=== PATIENT | female | born 1990 | race Caucasian/White ===

== ENCOUNTER 2023-07-20 10:37 | Emergency (ER) | payer MEDICAID, OTHER ==
[~2023-07-20] VITALS: Ht 165.1 cm; Wt 116.6 kg
[2023-07-20 10:52] VITALS: BP 119/72; PULSE 74; RESP 18; TEMP 98.4; O2SAT 97
[2023-07-20] MEDS ORDERED: IBUP-2213 PO (12:18)
== END 2023-07-20 12:47 | disposition home or self-care (01) ==
LOC: MED 10:37
DX: S93.401A Sprain of unspecified ligament of right ankle, initial encounter (principal); R03.0 Elevated blood-pressure reading, without diagnosis of hypertension; Z79.1 Long term (current) use of non-steroidal anti-inflammatories (NSAID); X58.XXXA Exposure to other specified factors, initial encounter; Y93.89 Activity, other specified; Y92.89 Other specified places as the place of occurrence of the external cause; Y99.8 Other external cause status
CPT/HCPCS: 73610; 81025; 99283